=== PATIENT | male | born 1950 | race Caucasian/White ===

== ENCOUNTER → 2017-01-09 | Outpatient (CLI) | payer MEDICARE, OTHER | END | disposition home or self-care (01) | LOC: CARD 09:34 | PROVIDERS: ATTEND Internal Medicine | DX: C61 Malignant neoplasm of prostate (principal); I25.10 Atherosclerotic heart disease of native coronary artery without angina pectoris; E11.29 Type 2 diabetes mellitus with other diabetic kidney complication; I10 Essential (primary) hypertension; I25.9 Chronic ischemic heart disease, unspecified; I49.3 Ventricular premature depolarization; J44.0 Chronic obstructive pulmonary disease with (acute) lower respiratory infection; Z72.0 Tobacco use; R55 Syncope and collapse | CPT/HCPCS: 93017; 93350 ==

== ENCOUNTER 2017-01-19 10:33 | Observation (INO) | payer MEDICARE, OTHER ==
[2017-01-18 11:15] VITALS: BP 141/69
[~2017-01-19] VITALS: Ht 180.3 cm; Wt 80.1 kg
[~2017-01-19 10:33] MED LIST: ASPI-650 PO; ATOR10TA PO; CO Q-10 PO; GABA300C PO; GTF CHROMIUM PO; LISI-167 PO; METF500T4 PO; OMEGA 3 PO
[2017-01-19] MEDS ORDERED: BISACODYL 10 MG SUPP PR PRN (11:30)
[2017-01-19] MEDS ORDERED: ACETAMINOPHEN 325 MG TABLET PO PRN (11:30)
[2017-01-19] MEDS ORDERED: ZOLPIDEM 5MG TABLET PO PRN (11:30)
[2017-01-19] MEDS ORDERED: BISACODYL 5 MG EC TABLET PO PRN (11:30)
[2017-01-19] MEDS ORDERED: ASPIRIN 325 MG TABLET EC PO ONE (11:30)
[2017-01-19] MEDS ORDERED: ONDANSETRON 2MG/ML, 2ML IVPush PRN (11:30)
[2017-01-19] MEDS ORDERED: ASPIRIN 325 MG TABLET EC ONE (12:06)
[2017-01-19] MEDS ORDERED: ALPH300C PO (12:06)
[2017-01-19] MEDS ORDERED: magnesium chloride PO (12:06)
[2017-01-19] MEDS ORDERED: MIDAZOLAM 1 MG/ML, 5ML ONE (12:11)
[2017-01-19] MEDS ORDERED: FENTANYL PF 100 MCG/2ML ONE (12:11)
[2017-01-19] MEDS ORDERED: LIDOCAINE 2%, 20ML ONE (12:11)
[2017-01-19] MEDS ORDERED: VERAPAMIL 2.5 MG/ML, 2ML ONE (12:11)
[2017-01-19] MEDS ORDERED: HEPARIN 1,000 UNITS/ML, 10ML ONE (12:11)
[2017-01-19] MEDS ORDERED: BIVALIRUDIN 250 MG ONE (12:12)
[2017-01-19] MEDS ORDERED: PRASUGREL 10 MG TABLET ONE ×2 (13:11→13:38)
[2017-01-19] MEDS ORDERED: BIVALIRUDIN 250 MG in DEXTROSE 5% 50 ML IV SCH (13:41)
[2017-01-19] MEDS: LISINOPRIL 5 MG TABLET PO SCH (18:04)
[2017-01-19 19:15] VITALS: BP 139/63
[2017-01-19 20:16] LABS: IS PT STATUS REG ER OR PRE ER? NO
[2017-01-19] MEDS ORDERED: GABAPENTIN 300 MG CAPSULE PO SCH (21:00)
[2017-01-19] MEDS ORDERED: ATORVASTATIN 40 MG TABLET PO SCH (21:00)
[2017-01-20 02:49] VITALS: BP 128/69
[2017-01-20 05:30] LABS: HEMOGLOBIN 14.4 g/dL (13.7-18.0)
[2017-01-20 05:37] LABS: BLOOD UREA NITROGEN 24 mg/dL (7-18)
[2017-01-20] MEDS ORDERED: ASPIRIN 325 MG TABLET EC PO SCH (06:00)
[2017-01-20] MEDS ORDERED: PRAS10TA4 PO (08:05)
[2017-01-20] MEDS ORDERED: LISI5TAB7 PO (08:05)
[2017-01-20 08:17] VITALS: BP 149/83
[2017-01-20] MEDS ORDERED: metFORMIN 500 MG TABLET PO SCH (09:00)
[2017-01-20] MEDS ORDERED: GABAPENTIN 300 MG CAPSULE PO SCH (09:00)
[2017-01-20] MEDS ORDERED: OMEGA-3/FISH OIL CAPSULE PO SCH (09:00)
[2017-01-20] MEDS ORDERED: PRASUGREL 10 MG TABLET PO SCH (09:00)
[2017-01-20] MEDS ORDERED: MAGNESIUM CHLORIDE 64 MG TABLET.DR PO SCH (09:00)
[2017-01-20] MEDS ORDERED: LISINOPRIL 5 MG TABLET PO SCH (09:00)
[2017-01-20] MEDS ORDERED: LISINOPRIL 10 MG TABLET PO SCH (09:00)
[2017-01-20] MEDS ORDERED: ASPIRIN 81 MG TABLET EC PO SCH (09:00)
[2017-01-20] MEDS: LISINOPRIL 5 MG TABLET PO SCH (09:02)
== END 2017-01-20 12:00 | disposition home or self-care (01) ==
LOC: CACL 10:33 → ORIP 13:41 → 5SO 14:11 → DCLOUNGE 01-20 11:15
PROVIDERS: ADMIT Internal Medicine Cardiovascular Disease; ATTEND Internal Medicine Cardiovascular Disease
DX: I20.9 Angina pectoris, unspecified (principal); R55 Syncope and collapse; R93.1 Abnormal findings on diagnostic imaging of heart and coronary circulation; I10 Essential (primary) hypertension; E78.1 Pure hyperglyceridemia; E10.9 Type 1 diabetes mellitus without complications; J43.9 Emphysema, unspecified; E78.5 Hyperlipidemia, unspecified; Z72.0 Tobacco use
CPT/HCPCS: 36415; 71020; 80048; 82040; 84484; 85014; 85018; 85610; 85730; 92928; 93005; 93458; C1725; C1874; C1887; C1894; G0378; J0583; J1644; J2250; J3010; J3490; Q9967; C9600

== ENCOUNTER 2017-04-25 19:42 | Inpatient (IN) | payer MEDICARE, OTHER ==
[~2017-04-25] VITALS: Ht 179.1 cm; Wt 80.9 kg
[~2017-04-25 19:42] MED LIST changes: +ALPH300C PO; +LISI5TAB7 PO; +PRAS10TA4 PO; +magnesium chloride PO
[2017-04-25] MEDS ORDERED: SODIUM CHLORIDE 0.9% 1,000 ML IV ONE (20:08)
[2017-04-25] MEDS ORDERED: NITROGLYCERIN SINGLE TAB 0.4 MG SL ONE (20:27)
[2017-04-25] MEDS ORDERED: NITROGLYCERIN SINGLE TAB 0.4 MG SL PRN (20:30)
[2017-04-25] MEDS ORDERED: SODIUM CHLORIDE FLUSH 10ML SYR IVF ONE (20:30)
[2017-04-25 20:45] LABS: BLOOD UREA NITROGEN 15 mg/dL (7-18)
[2017-04-25 20:46] LABS: IS PT STATUS REG ER OR PRE ER? YES
[2017-04-25] MEDS ORDERED: OMNIPAQUE 350 MG/ML, 100ML BOTTLE ONE (23:05)
[2017-04-26] MEDS ORDERED: GLUCAGON 1 MG IM PRN
[2017-04-26] MEDS ORDERED: DEXTROSE 50%, 50ML SYRINGE IVPush PRN
[2017-04-26] MEDS ORDERED: DEXTROSE 4 GM TAB.CHEW PO PRN
[2017-04-26] MEDS ORDERED: ONDANSETRON 2MG/ML, 2ML IVPush PRN
[2017-04-26] MEDS ORDERED: PROMETHAZINE 25 MG/ML, 1ML IM PRN
[2017-04-26] MEDS ORDERED: ENALAPRILAT 1.25 MG/ML, 2ML IVPush PRN
[2017-04-26 00:41] LABS: IS PT STATUS REG ER OR PRE ER? YES
[2017-04-26] MEDS ORDERED: GABAPENTIN 300 MG CAPSULE PO ONE (01:00)
[2017-04-26] MEDS: hydrALAzine 20 MG/ML, 1ML IVPush PRN ×2 (01:07→13:26)
[2017-04-26] MEDS: morphine SULFATE 10 MG/ML, 1ML IVPush PRN ×2 (01:14→13:25)
[2017-04-26] MEDS: SODIUM CHLORIDE 0.9% 1,000 ML IV SCH ×3 (01:19→20:06)
[2017-04-26 01:22] VITALS: BP 198/84
[2017-04-26 01:48] VITALS: BP 169/86
[2017-04-26] MEDS: ENOXAPARIN 40 MG/0.4 ML SQ SCH (01:55)
[2017-04-26 05:54] LABS: IS PT STATUS REG ER OR PRE ER? NO
[2017-04-26 06:08] LABS: ASPARTATE AMINO TRANSFERASE 14 U/L (15-37); BLOOD UREA NITROGEN 12 mg/dL (7-18)
[2017-04-26] MEDS ORDERED: ALBUTEROL/IPRATROPIUM 2.5MG/0.5MG, 3 ML NPPB SCH (07:00)
[2017-04-26] MEDS ORDERED: ALBUTEROL/IPRATROPIUM 2.5MG/0.5MG, 3 ML NPPB PRN (07:00)
[2017-04-26 08:00] VITALS: BP 153/68
[2017-04-26] MEDS ORDERED: LISINOPRIL 5 MG TABLET PO SCH (09:00)
[2017-04-26] MEDS: PRASUGREL 10 MG TABLET PO SCH (09:33)
[2017-04-26] MEDS: INSULIN ASPART 100 UNITS/ML, PEN SQ-INSULIN SCH ×4 (09:42→21:25)
[2017-04-26] MEDS: SODIUM CHLORIDE FLUSH 10ML SYR IVF SCH ×2 (09:52→20:07)
[2017-04-26 13:16] VITALS: BP 185/90
[2017-04-26 14:30] VITALS: BP 156/66
[2017-04-26] MEDS: ACETAMINOPHEN 325 MG TABLET PO PRN (15:34)
[2017-04-26 19:56] VITALS: BP 105/55
[2017-04-26] MEDS: LISINOPRIL 5 MG TABLET PO SCH (20:08)
[2017-04-26] MEDS ORDERED: ATORVASTATIN 10 MG TABLET PO SCH (21:00)
[2017-04-26] MEDS: GABAPENTIN 300 MG CAPSULE PO SCH (22:01)
[2017-04-27 02:30] VITALS: BP 124/71
[2017-04-27] MEDS: ENOXAPARIN 40 MG/0.4 ML SQ SCH (02:47)
[2017-04-27] MEDS ORDERED: INSULIN ASPART 100 UNITS/ML, PEN SQ-INSULIN SCH (07:00)
[2017-04-27 07:53] VITALS: BP 150/66
[2017-04-27] MEDS: SODIUM CHLORIDE 0.9% 1,000 ML IV SCH (07:56)
[2017-04-27] MEDS: LISINOPRIL 5 MG TABLET PO SCH (07:57)
[2017-04-27] MEDS: GABAPENTIN 300 MG CAPSULE PO SCH (07:57)
[2017-04-27] MEDS: PRASUGREL 10 MG TABLET PO SCH (07:57)
[2017-04-27] MEDS: SODIUM CHLORIDE FLUSH 10ML SYR IVF SCH (07:57)
[2017-04-27] MEDS: ACETAMINOPHEN 325 MG TABLET PO PRN (08:32)
[2017-04-27] MEDS ORDERED: OMNIPAQUE 350 MG/ML, 100ML BOTTLE ONE (09:00)
[2017-04-27] MEDS ORDERED: METF500T4 PO (11:21)
[2017-04-27] MEDS ORDERED: LISI5TAB7 PO (11:21)
== END 2017-04-27 14:16 | disposition home or self-care (01) | DRG 302 ==
LOC: ED 23:14 → SUATTDRO 23:26 → EDIP 23:42 → 5SO 04-26 01:06 → DCLOUNGE 04-27 13:07
PROVIDERS: ADMIT Internal Medicine; ATTEND Internal Medicine
DX: I25.119 Atherosclerotic heart disease of native coronary artery with unspecified angina pectoris (principal); K85.90 Acute pancreatitis without necrosis or infection, unspecified; I10 Essential (primary) hypertension; E78.5 Hyperlipidemia, unspecified; I16.0 Hypertensive urgency; E11.40 Type 2 diabetes mellitus with diabetic neuropathy, unspecified; F41.9 Anxiety disorder, unspecified; R74.8 Abnormal levels of other serum enzymes; J44.9 Chronic obstructive pulmonary disease, unspecified; Z85.46 Personal history of malignant neoplasm of prostate; Z90.49 Acquired absence of other specified parts of digestive tract; Z95.5 Presence of coronary angioplasty implant and graft; Z79.4 Long term (current) use of insulin; Z87.891 Personal history of nicotine dependence
CPT/HCPCS: 36415; 71010; 71275; 74178; 76700; 80048; 80053; 80061; 80076; 82040; 82150; 82962; 83036; 83690; 84443; 84484; 85025; 93005; 96360; 96361; J1650; J1815; J2405; Q9967; J0360; J2270; J7030

== ENCOUNTER → 2017-05-08 | Outpatient (CLI) | payer MEDICARE, OTHER | END | disposition home or self-care (01) | LOC: CARD 10:24 | PROVIDERS: ATTEND Nurse Practitioner Family | DX: I49.3 Ventricular premature depolarization (principal); Z95.5 Presence of coronary angioplasty implant and graft | CPT/HCPCS: 93017 ==

== ENCOUNTER → 2017-08-01 | Outpatient (CLI) | payer MEDICARE, OTHER ==
[~2017-08-01] MED LIST changes: +REGADENOSON 0.4 MG/5 ML SYRINGE ONE
== END | disposition home or self-care (01) ==
LOC: CFH 07:07
PROVIDERS: ATTEND Nurse Practitioner Family
DX: I08.0 Rheumatic disorders of both mitral and aortic valves (principal); I10 Essential (primary) hypertension; Z87.891 Personal history of nicotine dependence; Z95.5 Presence of coronary angioplasty implant and graft
CPT/HCPCS: 78452; 93017; 93306; A9502; J2785

== ENCOUNTER 2019-03-13 08:00 | Outpatient (CLI) | payer MEDICARE, OTHER ==
[~2019-03-13 08:00] MED LIST changes: +METF500T17 PO; -METF500T4 PO; -REGADENOSON 0.4 MG/5 ML SYRINGE ONE
== END 2019-03-13 23:59 | disposition home or self-care (01) ==
LOC: CVU 08:00
PROVIDERS: ATTEND Internal Medicine Cardiovascular Disease
DX: I08.3 Combined rheumatic disorders of mitral, aortic and tricuspid valves (principal); I10 Essential (primary) hypertension; Z95.5 Presence of coronary angioplasty implant and graft
CPT/HCPCS: 93306